=== PATIENT | female | born 1990 | race Caucasian/White ===

== ENCOUNTER 2025-07-22 10:43 | Emergency (ER) | payer OTHER ==
[~2025-07-22] VITALS: Ht 167.6 cm; Wt 91.0 kg
[2025-07-22 10:45] VITALS: TEMP 98.8; O2SAT 95
[2025-07-22 12:31] LABS: CLARITY URINE CLOUDY (CLEAR); COLOR URINE YELLOW (YELLOW); GLUCOSE URINE NEGATIVE (NEGATIVE); KETONES URINE NEGATIVE (NEGATIVE); LEUKOCYTE ESTERASE URINE 1+ (NEGATIVE); NITRITE URINE NEGATIVE (NEGATIVE); OCCULT BLOOD URINE 3+ (NEGATIVE); PH URINE 7.5 (4.5-8.0); PROTEIN URINE 1+ (NEGATIVE); SPECIFIC GRAVITY URINE 1.013 (1.005-1.030); UROBILINOGEN URINE 0.2 E.U./dL (0.2-1.0)
[2025-07-22 12:51] LABS: BACTERIA URINE 3+; RBC URINE 15-25 /hpf (0-2); SQUAMOUS EPITHELIAL CELL URINE 3+ /lpf (RARE/1+); YEAST URINE NONE SEEN
[2025-07-22 16:16] VITALS: BP 145/100; PULSE 96; RESP 16; O2SAT 96
[2025-07-22] MEDS: ACETAMINOPHEN 325MG TABLET PO NR (16:35)
== END 2025-07-22 16:38 | disposition home or self-care (01) ==
LOC: ER 10:43
DX: O46.8X1 Other antepartum hemorrhage, first trimester (principal); O99.341 Other mental disorders complicating pregnancy, first trimester; Z3A.01 Less than 8 weeks gestation of pregnancy; Z79.899 Other long term (current) drug therapy
CPT/HCPCS: 36415; 76830; 76856; 81003; 84702; 87077; 87186; 99284